=== PATIENT | female | born 1970 | race Two or more races ===

== ENCOUNTER → 2017-07-24 | Emergency (ER) | payer OTHER ==
[~2017-07-24] VITALS: Ht 165.1 cm; Wt 81.6 kg
[~2017-07-24] MED LIST: AMOX1TAB12 PO; CYMBALTA20 MG; DOLOGESIC 500-1 EACH PO; GLIPIZIDE10 MG; JANUMET XR 1001 EACH; LIPITOR20 MG; PERCOCET 5-3251 EACH PO; SINGULAIR10 MG PO; TUSSI PRES-B L120 M1 PO; VITAMIN D400 UNI1; ZITHROMAX TRI-500 MG PO
== END | disposition home or self-care (01) ==
LOC: ER 09:40
DX: B34.9 Viral infection, unspecified (principal)

== ENCOUNTER 2017-08-22 06:03 | Emergency (ER) | payer OTHER ==
[~2017-08-22] VITALS: Ht 165.1 cm; Wt 79.8 kg
== END 2017-08-22 15:26 | disposition home or self-care (01) ==
LOC: ER 06:03
DX: S70.01XA Contusion of right hip, initial encounter (principal); S90.02XA Contusion of left ankle, initial encounter; S80.01XA Contusion of right knee, initial encounter; W18.39XA Other fall on same level, initial encounter; Y93.89 Activity, other specified; Y92.488 Other paved roadways as the place of occurrence of the external cause; Y99.8 Other external cause status

== ENCOUNTER → 2017-09-20 | Emergency (ER) | payer OTHER ==
[~2017-09-20] VITALS: Ht 165.1 cm; Wt 80.3 kg
== END | disposition home or self-care (01) ==
LOC: ER 10:56
DX: N73.8 Other specified female pelvic inflammatory diseases (principal); R10.2 Pelvic and perineal pain

== ENCOUNTER 2017-11-08 08:39 | Emergency (ER) | payer OTHER ==
[~2017-11-08] VITALS: Ht 165.1 cm; Wt 81.6 kg
[~2017-11-08 08:39] MED LIST changes: +VASOTEC5 MG
[2017-11-08] MEDS ORDERED: CYCLOBENZAPRINE10 MG PO (11:27)
[2017-11-08] MEDS ORDERED: ULTRAM50 MG PO (11:27)
== END 2017-11-08 11:38 | disposition home or self-care (01) ==
LOC: ER 08:39
DX: M54.41 Lumbago with sciatica, right side (principal)

== ENCOUNTER 2018-02-21 07:21 | Emergency (ER) | payer OTHER ==
[~2018-02-21] VITALS: Ht 165.1 cm; Wt 81.6 kg
[~2018-02-21 07:21] MED LIST changes: +CYCLOBENZAPRINE10 MG PO; +ULTRAM50 MG PO
[2018-02-21] MEDS ORDERED: VASOTEC5 MG (07:49)
== END 2018-02-21 11:37 | disposition home or self-care (01) ==
LOC: ER 07:21
DX: M51.26 Other intervertebral disc displacement, lumbar region (principal)

== ENCOUNTER 2018-04-28 17:04 | Emergency (ER) | payer OTHER ==
[~2018-04-28] VITALS: Ht 165.1 cm; Wt 84.4 kg
== END 2018-04-28 21:37 | disposition home or self-care (01) ==
LOC: ER 17:04
DX: K29.70 Gastritis, unspecified, without bleeding (principal)

== ENCOUNTER 2018-06-01 15:47 | Emergency (ER) | payer OTHER ==
[~2018-06-01] VITALS: Ht 165.1 cm; Wt 84.4 kg
== END 2018-06-01 19:23 | disposition home or self-care (01) ==
LOC: ER 15:47
DX: J06.9 Acute upper respiratory infection, unspecified (principal)

== ENCOUNTER 2019-03-24 10:08 | Emergency (ER) | payer OTHER ==
[~2019-03-24] VITALS: Ht 165.1 cm; Wt 79.8 kg
[2019-03-24] MEDS ORDERED: RESTORIL15 MG (11:04)
[2019-03-24] MEDS ORDERED: SEROQUEL25 MG (11:04)
[2019-03-24] MEDS ORDERED: CYMBALTA60 MG (11:04)
[2019-03-24] MEDS ORDERED: ATIVAN0.5 M1 (11:05)
[2019-03-24] MEDS ORDERED: VITAMIN D32000 UNIT (11:05)
[2019-03-24] MEDS ORDERED: NORFLEX100MG (11:05)
[2019-03-24] MEDS ORDERED: JARDIANCE10 MG (11:06)
[2019-03-24] MEDS ORDERED: GLIPIZIDE ER2.5 MG (11:06)
[2019-03-24] MEDS ORDERED: METFORMIN HCL1000 MG (11:06)
[2019-03-24] MEDS ORDERED: PROTONIX20 MG (11:07)
[2019-03-24] MEDS ORDERED: CIPRO500 MG PO (11:17)
== END 2019-03-24 11:31 | disposition home or self-care (01) ==
LOC: ER 10:08
DX: S61.451A Open bite of right hand, initial encounter (principal); W55.01XA Bitten by cat, initial encounter; Y93.89 Activity, other specified; Y92.018 Other place in single-family (private) house as the place of occurrence of the external cause; Y99.8 Other external cause status

== ENCOUNTER 2019-04-14 11:46 | Outpatient (CLI) | payer OTHER ==
[~2019-04-14 11:46] MED LIST changes: +ATIVAN0.5 M1; +CIPRO500 MG PO; +CYMBALTA60 MG; +GLIPIZIDE ER2.5 MG; +JARDIANCE10 MG; +METFORMIN HCL1000 MG; +NORFLEX100MG; +PROTONIX20 MG; +RESTORIL15 MG; +SEROQUEL25 MG; +VITAMIN D32000 UNIT
== END 2019-04-14 11:48 | disposition home or self-care (01) ==
LOC: RAD 11:46
DX: M25.512 Pain in left shoulder (principal)

== ENCOUNTER 2019-04-21 08:50 | Outpatient (CLI) | payer OTHER | END 2019-04-21 13:10 | disposition home or self-care (01) | LOC: LAB 08:50 | DX: D64.89 Other specified anemias (principal); E56.1 Deficiency of vitamin K; E55.9 Vitamin D deficiency, unspecified; M85.88 Other specified disorders of bone density and structure, other site; M06.4 Inflammatory polyarthropathy ==

== ENCOUNTER 2019-08-05 11:44 | Emergency (ER) | payer OTHER ==
[~2019-08-05] VITALS: Ht 165.1 cm; Wt 83.9 kg
== END 2019-08-05 16:07 | disposition home or self-care (01) ==
LOC: ER 11:44
DX: B33.8 Other specified viral diseases (principal); B96.0 Mycoplasma pneumoniae [M. pneumoniae] as the cause of diseases classified elsewhere

== ENCOUNTER 2019-08-25 05:37 | Emergency (ER) | payer OTHER ==
[~2019-08-25] VITALS: Ht 165.1 cm; Wt 83.0 kg
== END 2019-08-25 16:03 | disposition home or self-care (01) ==
LOC: ER 05:37
DX: K29.70 Gastritis, unspecified, without bleeding (principal); R10.13 Epigastric pain

== ENCOUNTER 2022-01-02 12:51 | Emergency (ER) | payer OTHER ==
[~2022-01-02] VITALS: Ht 165.1 cm; Wt 79.8 kg
== END 2022-01-02 14:05 | disposition home or self-care (01) ==
LOC: ER 12:51
DX: H72.91 Unspecified perforation of tympanic membrane, right ear (principal); Z88.6 Allergy status to analgesic agent; E11.9 Type 2 diabetes mellitus without complications; Z79.84 Long term (current) use of oral hypoglycemic drugs

== ENCOUNTER 2022-06-17 10:01 | Emergency (ER) | payer OTHER ==
[~2022-06-17] VITALS: Ht 165.1 cm; Wt 77.1 kg
== END 2022-06-17 14:33 | disposition home or self-care (01) ==
LOC: ER 10:01
DX: K52.9 Noninfective gastroenteritis and colitis, unspecified (principal)